=== PATIENT | male | born 1990 | race Caucasian/White ===

== ENCOUNTER 2018-07-24 08:05 | Emergency (ER) | payer SELFPAY ==
[2018-07-24] MEDS ORDERED: Bupivacaine 0.25% 10 ML VIAL ONE (09:01)
[2018-07-24] MEDS ORDERED: Lidocaine 1% PF 5 ML VIAL ONE (09:11)
[2018-07-24] MEDS ORDERED: Lidocaine 1% (PF) 30 ML VIAL ONE (09:24)
== END 2018-07-24 09:33 | disposition home or self-care (01) ==
LOC: ERS 08:05
DX: K04.7 Periapical abscess without sinus (principal); K02.9 Dental caries, unspecified; J34.0 Abscess, furuncle and carbuncle of nose; J45.909 Unspecified asthma, uncomplicated; F17.210 Nicotine dependence, cigarettes, uncomplicated; F41.9 Anxiety disorder, unspecified; F32.9 Major depressive disorder, single episode, unspecified
CPT/HCPCS: 64400; J2001; S0020